=== PATIENT | male | born 1935 | race Caucasian/White ===

== ENCOUNTER 2017-12-05 09:21 | Inpatient (IN) | payer OTHER ==
[2017-12-05] VITALS (23 sets, daily range): BP systolic 113–201; BP diastolic 62–99
[~2017-12-05] VITALS: Ht 152.4 cm; Wt 80.8 kg
[2017-12-05] MEDS ORDERED: TYLENOL EXTRA500 MG PO (09:32)
[2017-12-05] MEDS ORDERED: PROSCAR 5MG TABL5 MG PO (09:33)
[2017-12-05] MEDS ORDERED: LIPITOR10 MG PO (09:33)
[2017-12-05] MEDS ORDERED: PRINIVIL20 M1 PO (09:33)
[2017-12-05] MEDS ORDERED: CLONIDINE0.1 PO (09:33)
[2017-12-05] MEDS ORDERED: MEN'S MULTI-VI1 EACH PO (09:34)
[2017-12-05] MEDS ORDERED: FLOMAX0.4 MG PO (09:34)
[2017-12-05] MEDS ORDERED: TOPROL XL25 MG PO (09:34)
[2017-12-05] MEDS ORDERED: NITROGLYCERIN0.4 MG SUBLING (09:34)
[2017-12-05 09:44] LABS: HEMATOCRIT 47.7 % (42.0-52.0); HEMOGLOBIN 16.2 gm/dL (14.0-18.0); MCH 33.2 pg (26.0-34.0); MCV 97.6 fL (80.0-100.0); MPV 7.7 fl. (7.2-11.1); RBC 4.89 mil/uL (4.50-6.00); RDW-CV 12.8 % (10.5-14.5); WBC 6.4 thou/uL (4.0-11.0)
[2017-12-05 09:47] LABS: POC CA IONIZED 4.2 mg/dL (4.5-5.3); POC CREATININE 1.2 mg/dL (0.6-1.3); POC HEMOGLOBIN 16.3 g/dL (12.0-17.0)
[2017-12-05 09:52] LABS: CALCIUM 8.7 mg/dL (8.5-10.1); CREATININE 1.3 mg/dL (0.6-1.3); POTASSIUM 3.8 mmol/L (3.5-5.1)
[2017-12-05 09:54] LABS: APTT 26.2 Seconds (25.0-31.3); PROTIME 10.1 Seconds (9.20-11.50)
[2017-12-05 09:56] LABS: TOTAL PROTEIN 7.4 g/dL (6.4-8.2)
[2017-12-05 11:36] LABS: URINE BILIRUBIN NEGATIVE (Negative); URINE BLOOD NEGATIVE (Negative); URINE CLARITY CLEAR; URINE COLOR YELLOW; URINE GLUCOSE-RANDOM NEGATIVE (Negative); URINE KETONES NEGATIVE (Negative); URINE LEUKOCYTES NEGATIVE (Negative); URINE NITRITE NEGATIVE (Negative); URINE PROTEIN NEGATIVE (Negative); URINE UROBILINOGEN 0.2 E.U./dl (0.2-1.0)
[2017-12-06] VITALS (15 sets, daily range): BP systolic 131–171; BP diastolic 62–88
[2017-12-06 08:35] LABS: CHOLESTEROL 140 mg/dL (<200); HDL CHOLESTEROL 48 mg/dL (>40); LDL CHOLESTEROL 75 mg/dL (<100); TC:HDL 2.9 Ratio (Not establshd); TRIGLYCERIDE 87 mg/dL (<150); VLDL 17 mg/dL (<40)
[2017-12-06 08:36] LABS: SERUM ASSESSMENT Clear
--- NOTE | 2017-12-06 11:40 | EKG ---
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 : 1935 Requested By: Juni Cuenca Order Number: [id number] MD: Julio Morrell Measurements Intervals [place] Rate: 64 P: -40 RI: 141 QRS: -58 QRSD: 104 T: QT: 543 QTc: 561 Interpretive Statements Sinus rhythm Low voltage, extremity and precordial leads Abnormal R-wave progression, late transition Borderline repolarization abnormality Prolonged QT interval No previous ECG available for comparison Electronically Signed On 12-06-2017 11:40:21 CHIEF STRATEGY OFFICER by Julio Morrell [email or web address] <ELECTRONICALLY SIGNED> By: Julio Morrell MD, [facility] 12/06/17 1140 [id number] [id number] Julio Morrell MD, [facility] /EPI
--- NOTE | 2017-12-06 14:08 | 2DMMODE ---
[place] [address] 2 D/M-MODE ECHOCARDIOGRAM Name: MICHAEL RAY Room: [address] IN [facility]#: [id number] Admission: 12/05/17 Attend Phys: Cat Harvey, Discharge: Date of : 39 Date of Service: 12/06/17 1407 Report #: [id number] THIS REPORT FOR: //name// APPROVED REPORT Study performed: 12/06/2017 11:14:57 EXAM: Comprehensive 2D, Doppler, and color-flow Echocardiogram Patient Location: In-Patient Room #: [facility] Status: routine BSA: 1.88 HR: 65 bpm BP: 157/77 mmHg Rhythm: NSR Other Information Study Quality: Good Indications CVA/TIA Echo Enhancing Agent Indication: Rule out Shunt Agent(s) / Amount(s) Used: Agitated Saline 10 cc 2D Dimensions LVEF(%): 64.68 (>50%) IVSd: 13.53 (7-11mm) LVOT Diam: 20.02 (18-24mm) LVDd: 49.54 mm PWd: 10.36 (7-11mm) Ascending Ao: 36.75 (22-36mm) LVDs: 31.97 (25-40mm) Aortic Root: 30.87 mm Aquino's LVEF: 64.68 % Volumes Left Atrial Volume (Systole) LA ESV Index: 21.80 mL/m2 Aortic Valve AoV Peak Renan.: 1.83 m/s AO Peak Gr.: 13.35 mmHg LVOT Max P.36 mmHg AO Mean Gr.: 7.24 mmHg LVOT Mean P.91 mmHg LVOT Max V: 1.36 m/s AO V2 VTI: 35.14 cm LVOT Mean V: 0.75 m/[place] [address] 2 D/M-MODE ECHOCARDIOGRAM Name: MICHAEL RAY Room: [address] IN .R.#: [id number] Admission: 12/05/17 Attend Phys: Cat Harvey, Discharge: Date of : 39 Date of Service: 12/06/17 1407 Report #: [id number] PILAR (VTI): 2.46 cm2 LVOT V1 VTI: 27.42 cm Mitral Valve E/A Ratio: 0.93 MV Decel. Time: 243.80 ms MV E Max Renan.: 0.82 m/s MV PHT: 70.70 ms MVA (PHT): 3.11 cm2 TDI E/Lateral E': 9.11 E/Medial E': 9.11 Medial E' Renan.: 0.09 m/s Lateral E' Renan.: 0.09 m/s Pulmonary Valve PV Peak Renan.: 0.92 m/s PV Peak Gr.: 3.41 mmHg Tricuspid Valve TR Peak Gr.: 27.88 mmHg RVSP: 32.00 mmHg Left Ventricle The left ventricle is normal size. There is normal LV segmental wall motion. Mild concentric left ventricular hypertrophy. Left ventricular systolic function is normal. The left ventricular ejection fraction is within the normal range. No left ventricle thrombus noted on this study. LVEF is 60-65%. Grade I - abnormal relaxation pattern. Right Ventricle The right ventricle is normal size. The right ventricular systolic function is normal. Atria The left atrium size is normal. Interatrial septum is intact without evidence of ASD or PFO.Negative bubble study. The right atrium size is normal. Aortic Valve The aortic valve is normal in structure. Mild aortic regurgitation. There is no aortic valvular stenosis. Mitral Valve The mitral valve is normal in structure. Trace mitral regurgitation. No evidence of mitral valve stenosis[place] [address] 2 D/M-MODE ECHOCARDIOGRAM Name: MICHAEL RAY Room: [address] IN .R.#: [id number] Admission: 12/05/17 Attend Phys: Cat Harvey, Discharge: Date of : 39 Date of Service: 12/06/17 1407 Report #: [id number] The tricuspid valve is normal in structure. Trace tricuspid regurgitation. The RVSP is 30-35 mmHg. Pulmonic Valve The pulmonary valve is normal in structure. There is no pulmonic valvular regurgitation. Great Vessels The aortic root is normal in size. IVC is normal in size and collapses with >50% inspiration Pericardium There is no pericardial effusion. <Conclusion> LVEF is 60-65%. There is normal LV segmental wall motion. The aortic valve is normal in structure. Mild aortic regurgitation. There is no aortic valvular stenosis. Interatrial septum is intact without evidence of ASD or PFO.Negative bubble study. Grade I - abnormal relaxation pattern. <ELECTRONICALLY SIGNED> By: Figueroa Lux MD, FACC 12/06/17 1407 06 140 Figueroa Lux MD, FACC /INF
[2017-12-07] VITALS (8 sets, daily range): BP systolic 141–175; BP diastolic 69–87
[2017-12-07 05:06] LABS: ALBUMIN 3.2 g/dL (3.4-5.0); CALCIUM 8.4 mg/dL (8.5-10.1); CREATININE 1.1 mg/dL (0.6-1.3); MAGNESIUM 1.8 mg/dL (1.8-2.4); PHOSPHORUS* 2.9 mg/dL (2.5-4.9); POTASSIUM 4.1 mmol/L (3.5-5.1); TOTAL BILIRUBIN 1.5 mg/dL (<0.1-1.0); TOTAL PROTEIN 5.6 g/dL (6.4-8.2)
[2017-12-07] MEDS ORDERED: ASPIRIN81 M2 PO (08:42)
[2017-12-07] MEDS ORDERED: ASA5UEC PO (09:03)
--- NOTE | 2017-12-09 10:39 | CON ---
[address] [address] CONSULTATION Name: MICHAEL RAY Room: [address] IN M.R.#: [id number] Admission: 12/05/17 Attend Phys: Cat Harvey MD Discharge: 12/07/17 Date of : 39 Report #: [id number] THIS REPORT FOR: //name// CC: Cat Bender DATE OF SERVICE: 12/05/2017 HISTORY OF PRESENT ILLNESS: This is an 82-year-old male patient who was evaluated by me for an acute onset of weakness and incoordinations on the right side. It happened at 8:00 this morning. He is very certain that he woke up without any symptoms, and it happened at 8:00 this morning. He had noted trauma associated with it. He had a stroke about 10-15 years ago. Symptoms were on the right side, but is not clear what the symptoms were. REVIEW OF SYSTEMS: Indicates that this patient apparently had a stroke in the past and that was in [place]. The records are not available. He used to be on aspirin, but he stopped taking aspirin some time ago. He does have a history of hyperlipidemia and hypertension. He takes medications for it. His 14-point review of systems was carried out, and this was his relevant 14-point review of system. PAST MEDICAL HISTORY: Positive for stroke. Further description of the stroke is not very clear. FAMILY HISTORY: Negative for early age stroke. SOCIAL HISTORY: He indicates he drinks about 1 alcoholic drink a day. The patient does not smoke. PHYSICAL EXAMINATION: Indicates he is alert, responsive. His speech is soft, but he thinks that is his baseline. His memory, fund of knowledge and concentration look intact. Cranial nerve examination 2-12 mostly looks unremarkable. I do not see any hemianopsia. He is pretty significantly weak in the right lower extremity, the strength is estimated to be about 2/5, in the upper extremity, he does better and the strength is either 3 or 4/5. He does have sensory symptoms on the right side, and he has a pretty significant impairment of the right [id number]. His position sense is intact on both sides. Reflexes are symmetrical. There is no carotid bruit in this patient. There is no atrial fibrillation, no respiratory difficulty, no edema, cyanosis or jaundice. Last blood pressure is 159/81, respirations 15, pulse is 74 and temperature is 97.9. LABORATORY DATA: His white count is normal. His PT, PTT were normal. [place] [address] CONSULTATION Name: FLORMICHAEL Reji Room: [address] IN [facility]#: [id number] Admission: 12/05/17 Attend Phys: Cat Harvey MD Discharge: 12/07/17 Date of : 39 Report #: [id number] Cuenca from Emergency Room has gone with him for exclusion criteria. He did not find any exclusion criteria, and the patient was started on TPA. I came back to Emergency Room and discussed with him the situation. I discussed with him that at this time, the diagnosis is presumptive. If we try to confirm the diagnosis, then the time to give TPA passes, and even if it does not pass, it is a time sensitive diagnosis where prognosis is worst if we delay the TPA administration. He understood all those. He wanted to proceed with TPA. I also discussed with him that in a patient with NIH low scale, it is up to the patient if he wants TPA or not, but unfortunately if he becomes worse, then the time to give TPA passes off. He understood that also. He wanted to proceed with TPA. He understands the risk associated with the TPA. TPA was already started and it was continued. Subsequent to that, I got the CT angiogram done, and I reviewed those films with the radiologist. 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 I recommended that the patient be transferred to [facility] for consideration for intervention. As I understand from the records now that people did not think any intervention is indicated and the patient was kept here. Since he does have a stenosis, I would like to keep his blood pressure somewhat high. Because of TPA, we need to keep it lower than 180 systolic, so I will suggest keeping somewhere between 150 and 180 systolic. I agree with some fluid in this patient. He can be restarted on antihypertensive he was on, but he should be closely monitored to make sure the blood pressure does not drop. I will get a stat MRI in this patient. That should look for any brainstem CVA or any cerebellar CVA because of so much ataxia. If he has a cerebellar CVA, he needs to be monitored very closely because surgical intervention will be indicated in case he has a cerebellar stroke and tries to herniate. All of it was discussed with the patient in great detail. More than 50 minutes of time was spent taking care of this patient today and majority of that time was spent counseling the patient on multiple matters as well as coordinating his care. Thank you very much for this referral, and if you have any question, please feel free to contact me. We will follow this patient with you in the hospital. <ELECTRONICALLY SIGNED> By: Jorden Singer MD 12/09/17 1039 1311 [id number] leonela Walls
== END 2017-12-07 11:47 | disposition home or self-care (01) | DRG 62 ==
LOC: M.ERS 09:21 → M.ICU 10:28 → M.TBA-ER 10:28 → M.ICU 11:24
PROVIDERS: Emergency Medicine; ADMIT Internal Medicine
DX: I63.9 Cerebral infarction, unspecified (principal); G81.93 Hemiplegia, unspecified affecting right nondominant side; I10 Essential (primary) hypertension; N40.0 Benign prostatic hyperplasia without lower urinary tract symptoms; E78.5 Hyperlipidemia, unspecified; Z88.2 Allergy status to sulfonamides; Z86.73 Personal history of transient ischemic attack (TIA), and cerebral infarction without residual deficits

== ENCOUNTER 2018-07-28 11:34 | Inpatient (IN) | payer OTHER ==
[~2018-07-28] VITALS: Ht 165.1 cm; Wt 75.6 kg
[~2018-07-28 11:34] MED LIST: ASA5UEC PO; ASPIRIN81 M2 PO; CLONIDINE0.1 PO; FLOMAX0.4 MG PO; LIPITOR10 MG PO; MEN'S MULTI-VI1 EACH PO; NITROGLYCERIN0.4 MG SUBLING; PRINIVIL20 M1 PO; PROSCAR 5MG TABL5 MG PO; TOPROL XL25 MG PO; TYLENOL EXTRA500 MG PO
[2018-07-28 11:41] VITALS: BP 163/99
[2018-07-28] MEDS ORDERED: PRINIVIL20 MG PO (11:47)
[2018-07-28] MEDS ORDERED: XARELTO20 MG PO (11:47)
[2018-07-28] MEDS ORDERED: MULTI VITAMIN1 EACH PO (11:48)
[2018-07-28 12:25] LABS: ABSOLUTE MONOCYTES 0.5 thou/uL (0.0-1.2); ABSOLUTE NEUTROPHILS 4.5 thou/uL (1.6-8.1); BASOPHILS 0.5 %; EOSINOPHILS 0.4 %; HEMATOCRIT 48.2 % (42.0-52.0); HEMOGLOBIN 16.2 gm/dL (14.0-18.0); LYMPHOCYTES 28.6 %; MCH 33.2 pg (26.0-34.0); MCHC 33.5 g/dL (28.0-37.0); MCV 99.1 fL (80.0-100.0); MPV 7.9 fl. (7.2-11.1); NUCLEATED RBCS 0 /100WBC; PLATELET COUNT* 208 thou/uL (150-400); POLYS 63.5 %; RBC 4.87 mil/uL (4.50-6.00); RDW-CV 13.4 % (10.5-14.5); WBC 7.1 thou/uL (4.0-11.0)
[2018-07-28 12:32] LABS: ANION GAP 6 mmol/L (7-16); BUN 18 mg/dL (7-18); CALCIUM 8.6 mg/dL (8.5-10.1); CHLORIDE 105 mmol/L (98-107); CO2 30 mmol/L (21-32); CREATININE 1.4 mg/dL (0.6-1.3); GLUCOSE 114 mg/dL (70-99); POTASSIUM 4.3 mmol/L (3.5-5.1); SODIUM 141 mmol/L (136-145)
[2018-07-28 12:33] LABS: APTT 35.3 Seconds (25.0-31.3); INR 1.2
--- NOTE | 2018-07-28 12:33 | NUR ---
PATIENT CLEARED THROAT, DOUBLE SWALLOWED AND COUGHED AFTER TAKING MOUTH FULL OF WATER AND DRINKING NORMAL. ADVISED DR DUENAS AND MADE NPO AT THIS TIME
[2018-07-28 12:39] LABS: ALKALINE PHOSPHATASE 56 U/L (46-116); SGOT 25 U/L (15-37); SGPT 45 U/L (30-65); TOTAL PROTEIN 7.2 g/dL (6.4-8.2); TROPONIN-I LEVEL <0.06 ng/mL (<0.06)
--- NOTE | 2018-07-28 14:38 | EKG ---
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 : 1935 Requested By: Jim Talbot Order Number: [id number] MD: Antonio Sumner Measurements Intervals [place] Rate: 87 P: SD: QRS: -56 QRSD: 79 T: QT: 495 QTc: 596 Interpretive Statements Atrial fibrillation Inferior infarct, old Consider anterior infarct Prolonged QT interval Compared to ECG 12/05/2017 09:54:59 Myocardial infarct finding now present Sinus rhythm no longer present Electronically Signed On 07-28-2018 14:38:09 CDT by Antonio Sumner [email or web address] <ELECTRONICALLY SIGNED> By: Antonio Sumner MD, [facility] 07/28/18 1438 1144 1144 Antonio Sumner MD, [facility] /EPI
[2018-07-28 14:44] VITALS: BP 155/98
--- NOTE | 2018-07-28 15:18 | NUR ---
PT OIENTED TO ROOM AND UNIT. PT DENIES COA OR PAIN AT THIS TIME. TELE EVEALS CONTROLLED AFIB. NIH COMPLETED AND PT WILL GO FOR MRI OF HEAD. WILL CONTINUE TO ASSESS.
[2018-07-28 16:13] VITALS: BP 148/104
--- NOTE | 2018-07-28 16:52 | NUR ---
DR SOLITARIO PERFORM BEDSIDE SWALLOW EVALUATION AND PATIENT PASSES. HEART HEALTHY DIET ORDERED.
[2018-07-28 20:30] VITALS: BP 118/75
[2018-07-29] VITALS: BP 93/55
[2018-07-29 04:00] VITALS: BP 129/88
--- NOTE | 2018-07-29 05:45 | NUR ---
PATIENT ALERT AND ORIENTED X 4. VITALS STABLE. RA. TRACING AFIB ON SEEING EYE DOG TEACHER. TYLENOL GIVEN FOR A HEADACHE, EFFECTIVE. DENIES ANYOTHER DISCOMFORT. UP WITH SBA. HOURLY ROUNDS. NURSING WILL CONTINUE TO MONITOR.
--- NOTE | 2018-07-29 09:00 | NUR ---
ASSUMED CARE OF PATIENT AFTER REC'G REPORT FROM DARREN RN. PT IS A & O X4, ABLE TO COMMUNICATE NEEDS TO STAFF. 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 O2 ATS: 95% RA. HOURLY ROUNDING. CALL LIGHT WITHIN REACH. PT UP AD NILAM IN ROOM WITH STEADY GAIT AND NONSLIP SOCKS.
[2018-07-29 10:00] VITALS: BP 142/72
[2018-07-29 12:49] LABS: CALCIUM 8.4 mg/dL (8.5-10.1); CREATININE 1.2 mg/dL (0.6-1.3); DIRECT BILIRUBIN 0.4 mg/dL (<0.1-0.3); POTASSIUM 4.3 mmol/L (3.5-5.1)
[2018-07-29 12:53] VITALS: BP 139/99
--- NOTE | 2018-07-29 13:30 | NUR ---
MET WITH PT TO DISCUSS HOME SITUATION/DC PLANNING. PT LIVES WITH , IS INDEPENDENT AND ACTIVE. USES NO EQUIPMENT AND HASN'T HAD HH. HE DENIES ANY DC NEEDS AND VOICED FRUSTRATION THAT HE THOUGHT HE WAS GOING HOME BUT WAITING ON A TEST. MARIA L FOWLER AWARE AND MAKING CALLS. PT REASSURED. CM TO FOLLOW
[2018-07-29 16:00] VITALS: BP 125/81
--- NOTE | 2018-07-29 16:30 | NUR ---
PT WITH COMPLETE DC ORDER IN CHART. DC INSTRUCTIONS AND MED LIST REVIEWED WITH PT AND FAMILY. ANSWERED QUESTIONS TO SATISFACTION OF PATIENT AND FAMILY. DOORS PREFITTER AND IV DC'D. PT IN POSSESSION OF ALL BELONGINGS. PT ASSISTED FROM UNIT BY AMBULATING WITH FAMILY AND UNIT STAFF MEMBER. PT FAMILY MEMBER WILL TRANSPORT PATIENT TO HOME VIA PERSONAL CAR.
[2018-07-29 16:39] VITALS: BP 125/81
--- NOTE | 2018-08-07 09:50 | CON ---
[address] [address] CONSULTATION Name: MICHAEL RAY Room: [address] IN M.R.#: [id number] Admission: 07/28/18 Attend Phys: Faby Mendoza Discharge: 07/29/18 Date of : 39 Report #: [id number] THIS REPORT FOR: //name// CC: Martha Napoleon Haddad DATE OF SERVICE: 07/28/2018 HISTORY OF PRESENT ILLNESS: This is an 83-year-old male patient who was evaluated by me for TIA-like symptoms. He had right-sided numbness and weakness. It has happened to him in the past. He was here in December. He was given TPA at that time. He had similar symptoms at that time. He was not found to be intervention candidate the last time. His blood pressure has been fluctuating and it was high when he came in. REVIEW OF SYSTEMS: Positive for stroke-like symptoms in December of this year. He had small and ischemic infarction at that time. I carried out the 14-point review of systems. He does have a history of hypertension and CVA. One of the records indicates atrial fibrillation, but I need to confirm that record. The patient does have a history of BPH. In fact, I looked at his records and it does look like he has atrial fibrillation on his EKG. Otherwise, he is not complaining of any new eye, ENT, cardiorespiratory, GI, , musculoskeletal, constitutional, dermatological, hematological, psychiatric, throat or allergic symptom associated with present symptomatology. PAST MEDICAL HISTORY: Positive for stroke. FAMILY HISTORY: Negative for early age stroke. SOCIAL HISTORY: The patient is and in fact his was my patient too. He does drink alcohol in moderation. He does not smoke. PHYSICAL EXAMINATION: NEUROLOGY: Indicate that this patient is alert, responsive, and able to follow simple and complex command. His speech, concentration, fund of knowledge, and memory is at his baseline. Cranial nerve examination 2-12 is unremarkable. His strength, sensation, reflexes, and tone look symmetrical. EXTREMITIES: Pulses are palpable. He has no edema, cyanosis or jaundice. There is no edema. NECK: There is no thyroid mass. HEENT: His hearing and vision is adequate. He has no dysmorphic features of eyes, ears and face. RESPIRATORY: Unremarkable. CARDIAC: He has what looks like atrial fibrillations on his EKG. IMPRESSION: This is a complicated case, for which [place] [address] CONSULTATION Name: RAYMICHAEL Reji Room: [address]#: [id number] Admission: 07/28/18 Attend Phys: Faby Mendoza Discharge: 07/29/18 Date of : 39 Report #: [id number] be addressed in this patient. If he has atrial fibrillations, which it looks like from the EKG report, then he needs a cardiology consult and anticoagulation. He has a prior documented CVA on a prior MRI and he has what looks like transient ischemic attack during the present presentation. He had some carotid stenosis or irregularity, which has disappeared indicating the last episode may have been secondary to embolization. Therefore, I believe we need a cardiology consult and consideration for anticoagulation. One of the record indicate that he may have been on anticoagulation and I need to discuss that with you. RECOMMENDATIONS: 1. Control of the blood pressure. 2. Clarify the situation with the radiologist and cutting torch operator tomorrow to address the question of anticoagulation in this patient. I have discussed all of it with this patient. A lot of that I got after I reviewed his old records and I will discuss that data with the patient tomorrow. More than 50 minutes of time was spent taking care of this patient today and majority of the time was spent counseling the patient and coordinating his care by reviewing all the above described. <ELECTRONICALLY SIGNED> By: Jorden Singer MD 08/07/18 0950 1857 [id number] Singer MD /nt
--- NOTE | 2018-08-28 09:08 | CON ---
[address] [address] CONSULTATION Name: MICHAEL RAY Room: [address] IN M.R.#: [id number] Admission: 07/28/18 Attend Phys: Faby Mendoza Discharge: 07/29/18 Date of : 39 Report #: [id number] THIS REPORT FOR: //name// CC: Martha Haddad DATE OF SERVICE: 07/29/2018 CARDIOLOGY CONSULTATION HISTORY OF PRESENT ILLNESS: I was asked by Dr. Haddad and Dr. Harvey to see this 83-year-old white male in cardiology consultation for evaluation and treatment of a TIA in the context of permanent AFib. This gentleman also has a history of a previous CVA. He has had his blood pressure go up recently and he tried to get a new script filled from Dr. Bender for hydrochlorothiazide 12.5 mg daily to be taken in addition to his metoprolol, clonidine, and lisinopril and for some reason, there was some difficulty filling it with the pharmacy. His blood pressure was fairly high for him, I believe in the 160 range and he developed right-sided weakness and heaviness in both the arm and the leg. He said it was fairly mild. His doctor, Dr. Bender, sent him to the Emergency Room. Diagnosis there of a TIA was made and he received some medication IV. He is not sure what it was, although he says he thought it was a beta antoine and it brought his blood pressure right down and his symptoms began to resolve at that time. He has been seen by Neurology that is Dr. Singer, who does also think he has had a TIA. Various ultrasounds, CTs and MRIs have been done, which did not show any evidence of a abbi infarct. He has not had any further symptoms. It is felt this was possibly an embolic event. I wonder if his hypertension may have played a role as well. Additionally, he does have hypercholesterolemia, benign prostatic hypertrophy, and coronary artery disease. He has not had any chest pain. He has not had dyspnea on exertion, shortness of breath at rest, orthopnea or PND. He has not had any recent syncope. Coronary risk factors include the hypercholesterolemia and high blood pressure. He does not have diabetes. He does not smoke. There is a family history of heart disease. He has not had renal disease or peripheral vascular disease. He apparently has a history of some carotid disease in the past, although the most recent carotid study which is less than a year ago that is an ultrasound did not show significant disease. He does have pain in his legs when he walks, is not clearly claudication. He thinks it may be arthritis. He has not had any open or nonhealing wounds. PAST MEDICAL HISTORY: Also includes an appendectomy, tonsillectomy, mastoidectomy, some sort of heat related syndrome as well as the TIA and CVA. ALLERGIES: HE IS ALLERGIC TO SULFA. HOME MEDICATIONS: Include p.r.n. Tylenol, atorvastatin 10 mg daily, [place] [address] CONSULTATION Name: MICHAEL RAY Room: [address] DIS IN M.R.#: [id number] Admission: 07/28/18 Attend Phys: Faby Mendoza Discharge: 07/29/18 Date of : 39 Report #: [id number] 0.1 mg b.i.d., finasteride 5 mg daily, lisinopril 20 mg b.i.d., metoprolol 25 mg daily. He is now on hydrochlorothiazide 12.5 mg daily, multivitamin daily, p.r.n. nitroglycerin, Xarelto 20 mg daily and tamsulosin 0.4 mg daily. Today, I added aspirin 81 mg daily to his regimen. REVIEW OF SYSTEMS: Positive for erectile dysfunction, cough, chest discomfort, shortness of breath with exercise, nearly passing out or passing out in the distant past, vomiting in the past, blood in the urine, seasonal allergies, medical allergies, sulfa allergy, wears glasses. He has some decreased hearing, bleeding from the nose in the past and wears dentures. Otherwise, his review of systems is negative for some 30 different complaints in 14 different system categories including central nervous system, general, respiratory, cardiovascular, endocrine, gastrointestinal, genitourinary, hematologic, lymphatic, allergic, immunologic, psychiatric, musculoskeletal, skin, eyes, ears, nose, mouth, and throat. Please see review of system form for details and negatives in review of systems. SOCIAL HISTORY: He is . 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 He has one alcoholic beverage per day and does not smoke. PHYSICAL EXAMINATION: GENERAL: He presents as a well-developed, well-nourished white male, in no acute distress. VITAL SIGNS: Pulse was 77 and slightly irregular, blood pressure is 142/92, temperature was 98.5 and respirations were 16 and regular. He is clinically afebrile. HEENT: His head was atraumatic. Eyes clear. NECK: Supple. There is no jugular venous distention or hepatojugular reflux. Thyroid is not enlarged. There is no adenopathy. SKIN: Warm and dry. Mucous membranes are moist. LUNGS: Clear to auscultation and percussion. HEART: Revealed normal first and second heart sound. There is no S4. There is no S3. There are no murmurs, rubs, thrills or heaves. Rhythm was irregularly irregular, rate was approximately 80. PMI is nondisplaced. ABDOMEN: Soft, flat, nontender. No palpable masses, no organomegaly. EXTREMITIES: Reveal no cyanosis, clubbing or edema. NEUROLOGIC: The patient mentated normally, talked normally, moved all extremities normally. IMPRESSION: 1. Transient ischemic attack. 2. Status post cerebrovascular accident. 3. Permanent atrial fibrillation. 4. Essential hypertension. 5. Hypercholesterolemia. 6. [place]ign [place] [address] CONSULTATION Name: MICHAEL RAY Room: [address] IN ..#: [id number] Admission: 07/28/18 Attend Phys: Faby Mendoza Discharge: 07/29/18 Date of : 39 Report #: [id number] 7. Coronary artery disease. RECOMMENDATION: He should continue full dose Xarelto or rivaroxaban and he should add aspirin 81 mg plain to his regimen daily. He is to continue his current antihypertensive regimen, which will include 12.5 mg of hydrochlorothiazide daily. He is to use p.r.n. clonidine 0.1 mg if his blood pressure gets above 150. Thank you very much for asking me to see the patient. If there are any questions, please feel free to contact me. He will follow up with Dr. Wills in our office. <ELECTRONICALLY SIGNED> By: Henrry Coffey MD, FACC 08/28/18 0908 1453 [id number]. Javan Blanchard MD, FACC /nt
== END 2018-07-29 17:37 | disposition still patient (30) | DRG 683 ==
LOC: M.ERS 11:34 → M.TBA-ER 12:49 → M.2W 13:41
PROVIDERS: Emergency Medicine Emergency Medical Services; ADMIT Internal Medicine
DX: N17.9 Acute kidney failure, unspecified (principal); G45.9 Transient cerebral ischemic attack, unspecified; Z79.01 Long term (current) use of anticoagulants; I16.0 Hypertensive urgency; E78.5 Hyperlipidemia, unspecified; I10 Essential (primary) hypertension; I48.2 Chronic atrial fibrillation; E78.00 Pure hypercholesterolemia, unspecified; N40.0 Benign prostatic hyperplasia without lower urinary tract symptoms; I25.10 Atherosclerotic heart disease of native coronary artery without angina pectoris; Z79.82 Long term (current) use of aspirin; Z79.899 Other long term (current) drug therapy; Z88.2 Allergy status to sulfonamides; Z90.49 Acquired absence of other specified parts of digestive tract

== ENCOUNTER 2018-08-21 04:54 | Emergency (ER) | payer OTHER ==
[~2018-08-21] VITALS: Ht 167.6 cm; Wt 74.4 kg
[~2018-08-21 04:54] MED LIST changes: +MULTI VITAMIN1 EACH PO; +PRINIVIL20 MG PO; +XARELTO20 MG PO
[2018-08-21] MEDS ORDERED: LOPRESSOR25 (05:01)
[2018-08-21] MEDS ORDERED: ASPIR 8181 MG (05:02)
[2018-08-21] MEDS ORDERED: HYDROCHLOROTH12.5 M1 (05:02)
[2018-08-21 05:55] LABS: ABSOLUTE EOSINOPHILS 0.1 thou/uL (0.0-0.7); ABSOLUTE LYMPHOCYTES 2.3 thou/uL (0.8-5.3); ABSOLUTE MONOCYTES 0.6 thou/uL (0.0-1.2); ABSOLUTE NEUTROPHILS 3.2 thou/uL (1.6-8.1); BASOPHILS 0.6 %; HEMATOCRIT 42.3 % (42.0-52.0); LYMPHOCYTES 37.6 %; MCH 32.5 pg (26.0-34.0); MCHC 33.2 g/dL (28.0-37.0); MCV 97.9 fL (80.0-100.0); MONOCYTES 9.2 %; MPV 7.4 fl. (7.2-11.1); NUCLEATED RBCS 0 /100WBC; PLATELET COUNT* 215 thou/uL (150-400); POLYS 51.6 %; RBC 4.32 mil/uL (4.50-6.00); RDW-CV 12.7 % (10.5-14.5); WBC 6.2 thou/uL (4.0-11.0)
[2018-08-21 09:15] VITALS: BP 126/90
== END 2018-08-21 09:18 | disposition home or self-care (01) ==
LOC: M.ERS 04:54
PROVIDERS: Emergency Medicine Emergency Medical Services
DX: K91.840 Postprocedural hemorrhage of a digestive system organ or structure following a digestive system procedure (principal); I10 Essential (primary) hypertension; E78.5 Hyperlipidemia, unspecified; I48.91 Unspecified atrial fibrillation; Z88.2 Allergy status to sulfonamides

== ENCOUNTER 2018-09-29 11:21 | Inpatient (IN) | payer OTHER ==
[~2018-09-29] VITALS: Ht 162.6 cm; Wt 79.4 kg
[~2018-09-29 11:21] MED LIST changes: +ASPIR 8181 MG; +HYDROCHLOROTH12.5 M1; +LOPRESSOR25
[2018-09-29 11:29] VITALS: BP 170/114
[2018-09-29 11:51] LABS: ABSOLUTE MONOCYTES 0.7 thou/uL (0.0-1.2); ABSOLUTE NEUTROPHILS 4.7 thou/uL (1.6-8.1); BASOPHILS 0.5 %; EOSINOPHILS 0.6 %; HEMATOCRIT 43.7 % (42.0-52.0); HEMOGLOBIN 14.3 gm/dL (14.0-18.0); LYMPHOCYTES 26.9 %; MCH 32.3 pg (26.0-34.0); MCHC 32.6 g/dL (28.0-37.0); MCV 99.1 fL (80.0-100.0); MONOCYTES 9.6 %; MPV 7.4 fl. (7.2-11.1); NUCLEATED RBCS 0 /100WBC; PLATELET COUNT* 260 thou/uL (150-400); POLYS 62.4 %; RBC 4.41 mil/uL (4.50-6.00); RDW-CV 13.7 % (10.5-14.5); WBC 7.6 thou/uL (4.0-11.0)
[2018-09-29 11:57] LABS: ANION GAP 7 mmol/L (7-16); BUN 20 mg/dL (7-18); CALCIUM 8.6 mg/dL (8.5-10.1); CHLORIDE 105 mmol/L (98-107); CO2 30 mmol/L (21-32); CREATININE 1.2 mg/dL (0.6-1.3); GLUCOSE 100 mg/dL (70-99); POTASSIUM 3.5 mmol/L (3.5-5.1); SODIUM 142 mmol/L (136-145)
[2018-09-29 11:59] LABS: APTT 32.7 Seconds (25.0-31.3); INR 1.2; PROTIME 12.1 Seconds (9.20-11.50)
[2018-09-29 12:09] LABS: ALBUMIN 3.7 g/dL (3.4-5.0); ALKALINE PHOSPHATASE 82 U/L (46-116); NT-PRO BRAIN NAT PEPTIDE 3543 pg/mL (<300); SGOT 39 U/L (15-37); SGPT 72 U/L (30-65); TOTAL BILIRUBIN 1.4 mg/dL (<0.1-1.0); TOTAL PROTEIN 7.1 g/dL (6.4-8.2); TROPONIN-I LEVEL <0.06 ng/mL (<0.06)
[2018-09-29 15:25] VITALS: BP 170/116
[2018-09-29 15:26] VITALS: BP 170/116
[2018-09-29 17:43] LABS: CALCIUM 8.6 mg/dL (8.5-10.1); CREATININE 1.2 mg/dL (0.6-1.3); MAGNESIUM 1.9 mg/dL (1.8-2.4); POTASSIUM 3.6 mmol/L (3.5-5.1)
[2018-09-29 20:00] VITALS: BP 158/95
[2018-09-30] VITALS (7 sets, daily range): BP systolic 109–156; BP diastolic 75–113
[2018-09-30 04:21] LABS: ABSOLUTE EOSINOPHILS 0.1 thou/uL (0.0-0.7); ABSOLUTE LYMPHOCYTES 2.3 thou/uL (0.8-5.3); ABSOLUTE MONOCYTES 0.8 thou/uL (0.0-1.2); ABSOLUTE NEUTROPHILS 4.8 thou/uL (1.6-8.1); BASOPHILS 0.3 %; EOSINOPHILS 0.7 %; HEMATOCRIT 39.5 % (42.0-52.0); HEMOGLOBIN 13.4 gm/dL (14.0-18.0); LYMPHOCYTES 29.1 %; MCH 32.9 pg (26.0-34.0); MCHC 33.9 g/dL (28.0-37.0); MONOCYTES 9.9 %; MPV 7.8 fl. (7.2-11.1); NUCLEATED RBCS 0 /100WBC; PLATELET COUNT* 232 thou/uL (150-400); RBC 4.07 mil/uL (4.50-6.00); RDW-CV 13.5 % (10.5-14.5); WBC 8.1 thou/uL (4.0-11.0)
[2018-09-30 04:23] LABS: CALCIUM 8.9 mg/dL (8.5-10.1); CREATININE 1.3 mg/dL (0.6-1.3); POTASSIUM 3.3 mmol/L (3.5-5.1)
--- NOTE | 2018-09-30 09:44 | CON ---
[address] [address] CONSULTATION Name: MICHAEL RAY Room: [address] IN M.R.#: [id number] Admission: 09/29/18 Attend Phys: Carlos So MD Discharge: Date of : 39 Report #: [id number] THIS REPORT FOR: //name// CC: Carlos Bender MD DATE OF SERVICE: 09/29/2018 INDICATION: Atrial fibrillation with rapid ventricular response rate, dyspnea and lower extremity swelling. 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 He was seen by his primary physician's office and noted to have hypertension, rapid ventricular response rate with atrial fibrillation and lower extremity swelling with complaints of progressive dyspnea. He was referred to the Emergency Room for further evaluation. CTA showed a possible nonocclusive pulmonary embolus in a sub-branch of the right pulmonary artery. No other emboli were appreciated. Chest x-ray was clear. NT-proBNP is elevated. Cardiac enzymes were unremarkable. EKG shows atrial fibrillation with a slightly rapid ventricular response rate without significant ST or T-wave abnormalities. The patient denies any chest pain. He has had progressive dyspnea on exertion over the last week or two. He is not having significant orthopnea. He is without other cardiac complaint. Venous Doppler study of lower extremity showed no evidence of DVT. The patient has been on Xarelto chronically for his atrial fibrillation. There is a history of coronary artery disease remotely. He is not having any symptoms to suggest angina. He has a history of CVA, remotely and TIA more recently. He has been recommended to be on a daily aspirin. CARDIAC RISK FACTORS: Include dyslipidemia and hypertension. PAST MEDICAL HISTORY: 1. Coronary artery disease. 2. Chronic atrial fibrillation. 3. Chronic diastolic heart failure. 4. Hypertension. 5. Dyslipidemia. 6. Previous CVA/TIA. PAST SURGICAL HISTORY: [place] [address] CONSULTATION Name: MICHAEL RAY Room: [address] IN [facility].#: [id number] Admission: 09/29/18 Attend Phys: Carlos So MD Discharge: Date of : 37 Report #: [id number] 1. Appendectomy. 2. Tonsillectomy. 3. Mastoidectomy. ALLERGIES: SULFA. HOME MEDICATIONS: Acetaminophen 500 mg q. 4 hours p.r.n., atorvastatin 10 mg at bedtime, clonidine 0.1 mg p.o. b.i.d., finasteride 5 mg daily, lisinopril 20 mg b.i.d., metoprolol tartrate 25 mg b.i.d., multivitamin 1 tablet daily, Xarelto 20 mg daily. SOCIAL HISTORY: The patient does not smoke. He has one alcoholic drink daily. He is . His is with him. 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 FAMILY HISTORY: Noncontributory. REVIEW OF SYSTEMS: As per HPI. PHYSICAL EXAMINATION: VITAL SIGNS: Stable. Blood pressure 170/116, pulse is in the 90s and irregular. GENERAL: This is a very pleasant elderly gentleman who is in no distress. Mood and affect appropriate. HEENT: The patient is normocephalic, atraumatic. Extraocular muscles intact. Mucous membranes are moist. NECK: Shows no jugular venous distention. There are no carotid bruits. CHEST: Reveals diminished breath sounds without wheezes or rales. CARDIOVASCULAR: Reveals an irregularly irregular rhythm without gallop or murmur. ABDOMEN: Reveals normal bowel sounds. The abdomen is soft, nontender. EXTREMITIES: Shows 1-2+ pitting edema to the knees bilaterally. SKIN: Warm and dry. LABORATORY DATA: A 12-lead EKG shows atrial fibrillation with no significant ST or T-wave abnormalities. Labs are reviewed. Sodium 142, potassium 3.5, chloride 105, bicarbonate 30, BUN 20, creatinine 1.2, serum glucose 100. Troponin less than 0.06. NT-proBNP 3543. White blood cell count 7.6, hemoglobin 14.3, platelet count 260,000. Chest x-ray without acute pulmonary abnormality. IMPRESSION AND RECOMMENDATIONS: 1. Acute on chronic diastolic heart failure exacerbated by rapid rate ventricular response and hypertension. We will diurese with diuretics and [place] [address] CONSULTATION Name: MICHAEL RAY Room: [address] IN .R.#: [id number] Admission: 09/29/18 Attend Phys: Carlos So MD Discharge: Date of : 37 Report #: [id number] 2. Hypertension. Adjust antihypertensive regimen in an effort to improve blood pressure control. 3. Atrial fibrillation, rate rapid at present time. We will adjust medications to improve rate control. 4. Dyslipidemia. Continue atorvastatin at current dose. 5. Coronary artery disease, presently stable. He is having no symptoms to suggest angina or acute coronary syndrome. 6. Pulmonary embolus, possibly noted by CTA. I doubt this is clinically relevant. Would continue Xarelto indefinitely. <ELECTRONICALLY SIGNED> By: Henrry Coffey MD, FACC 09/30/18 0944 1727 [id number] Coffey MD, FACC /nt
[2018-10-01 00:02] VITALS: BP 116/70
[2018-10-01 03:39] VITALS: BP 133/92
[2018-10-01 04:21] LABS: ABSOLUTE EOSINOPHILS 0.1 thou/uL (0.0-0.7); ABSOLUTE LYMPHOCYTES 2.5 thou/uL (0.8-5.3); ABSOLUTE MONOCYTES 0.8 thou/uL (0.0-1.2); ABSOLUTE NEUTROPHILS 4.3 thou/uL (1.6-8.1); BASOPHILS 0.3 %; EOSINOPHILS 0.8 %; HEMATOCRIT 43.3 % (42.0-52.0); HEMOGLOBIN 14.2 gm/dL (14.0-18.0); LYMPHOCYTES 32.7 %; MCH 32.3 pg (26.0-34.0); MCHC 32.9 g/dL (28.0-37.0); MCV 98.3 fL (80.0-100.0); MONOCYTES 10.1 %; MPV 7.7 fl. (7.2-11.1); NUCLEATED RBCS 0 /100WBC; PLATELET COUNT* 253 thou/uL (150-400); POLYS 56.1 %; RBC 4.41 mil/uL (4.50-6.00); RDW-CV 13.7 % (10.5-14.5); WBC 7.7 thou/uL (4.0-11.0)
[2018-10-01 04:41] LABS: CALCIUM 9.1 mg/dL (8.5-10.1); CREATININE 1.6 mg/dL (0.6-1.3); POTASSIUM 4.1 mmol/L (3.5-5.1)
[2018-10-01 08:00] VITALS: BP 119/83; BP 131/92
[2018-10-01] MEDS ORDERED: LASIX 40 MG TAB40 M2 PO (13:24)
[2018-10-01 13:32] VITALS: BP 119/83
[2018-10-01] MEDS ORDERED: XARELTO15 MG PO (14:17)
--- NOTE | 2018-10-01 15:32 | EKG ---
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 CORNELIUS : 1935 Requested By: Samantha Patel Order Number: [id number] MD: Henrry Coffey Measurements Intervals [place] Rate: 98 P: [place]: QRS: -41 QRSD: 81 T: 32 QT: 395 QTc: 505 Interpretive Statements Atrial fibrillation Abnormal R-wave progression, late transition Inferior infarct, old Prolonged QT interval Baseline wander in lead(s) V6 Compared to ECG 07/28/2018 11:44:39 No significant changes Electronically Signed On 10-01-2018 15:32:11 FEEDER CATCHER by Henrry Coffey [email or web address] <ELECTRONICALLY SIGNED> By: Henrry Coffey MD, FACC 10/01/18 1532 1150 1150 Henrry Coffey MD, FACC /EPI
--- NOTE | 2018-10-01 15:34 | EKG ---
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 : 1935 Requested By: Carlos So Order Number: [id number] Natasha MD: Henrry Coffey Measurements Intervals [place] Rate: 123 P: [place]: QRS: -60 QRSD: 82 T: QT: 371 QTc: 531 Interpretive Statements Atrial fibrillation Inferior infarct, old Possible anterior infarct, age indeterminate Prolonged QT interval Compared to ECG 07/28/2018 11:44:39 Myocardial infarct finding still present Electronically Signed On 10-01-2018 15:34:10 SECOND CUTTER by Henrry Coffey [email or web address] <ELECTRONICALLY SIGNED> By: Henrry Coffey MD, FACC 10/01/18 1534 0448 0448 Henrry Coffey MD, FACC /EPI
--- NOTE | 2018-10-06 07:08 | CON ---
[address] [address] CONSULTATION Name: RAYMICHAEL Reji Room: [address] IN M.R.#: [id number] Admission: 09/29/18 Attend Phys: Carlos So MD Discharge: 10/01/18 Date of : 37 Report #: [id number] THIS REPORT FOR: //name// CC: Carlos Cohen MD REQUESTING PHYSICIAN: Carlos So MD REASON FOR CONSULTATION: Finding of a pulmonary embolus on CAT scan. HISTORY OF PRESENT ILLNESS: The patient is a very pleasant 83-year-old gentleman who is from the [place] region who had been having about 2-4 days of progressive leg swelling and dyspnea on exertion, came in for evaluation and was found to have atrial fibrillation with rapid ventricular response and also bilateral lower extremity swelling. They did a CTA, which showed a possible small clot in a sub-branch of the right pulmonary artery. His breathing is now much improved after rate control and some diuresis. The patient has been compliant with his Xarelto 20 mg daily. He denied any recent headache, fevers, chills, nausea, vomiting. He had been eating a little bit more salt than usual lately. He denied any blood in his urine or stool. He thinks he is compliant with his medication. He has not had any bleeding difficulties. PAST MEDICAL HISTORY: Notable for the atrial fibrillation, also coronary artery disease, chronic diastolic heart failure, hypertension, lipid abnormalities, prior strokes about 10 years ago and also about in , also teeth extraction, hernia repair. FAMILY HISTORY: Mother and father had heart troubles. Brother from complications of prostate cancer. I think he has two children, one of them or maybe both have hypertension. MEDICATIONS: Metoprolol 100 b.i.d., Xarelto 15 b.i.d., multivitamins daily, finasteride 5 mg daily, potassium chloride 200 mL daily IV push, furosemide 40 b.i.d. IV push, pantoprazole 40 daily, lisinopril 20 b.i.d., clonidine 0.1 b.i.d., atorvastatin 10 at bedtime, various IV fluids, also received Zithromax. PHYSICAL EXAMINATION: GENERAL: The patient appears his stated age. He is very pleasant. He appears to be very talkative and appears to be a reliable historian. It appears the and several family members are present. VITAL SIGNS: Height is 5 feet 4 inches, 162 cm, weight 175 pounds. Blood pressure is 109/77, respirations 18, pulse 88, temperature 97.7. HEENT: Oropharynx clear. LUNGS: Appear to be mostly clear. Bases have some crackles, [place] [address] CONSULTATION Name: MICHAEL RAY Room: [address]#: [id number] Admission: 09/29/18 Attend Phys: Carlos So MD Discharge: 10/01/18 Date of : 37 Report #: [id number]. HEART: May have irregular heart rate, may be a slight murmur, not clear. LYMPHATICS: No enlarged lymph nodes in the supraclavicular, cervical, axillary or inguinal region. ABDOMEN: Slightly obese. No masses, nontender. EXTREMITIES: Have some trace edema. LABORATORY DATA: Here notable for BUN of 20, creatinine of 1.3 on admit. Albumin 3.7, magnesium normal. Coags normal on admit with an aPTT of 32.7. D-dimer was 0.59. White count 7.6, hemoglobin 14.3, MCV 99, platelets 260, differential normal. ASSESSMENT AND PLAN: 1. Small branch pulmonary embolus that may be chronic in nature, which prior was not clinically causing difficulties. I talked with Dr. Coffey and also the patient. Options include that this may be a not new pulmonary embolus as his ultrasound of the leg was normal and this could be chronic in nature and not clinically significant. Agree with Dr. Coffey's tentative plan to use Xarelto 15 b.i.d. for the next 4-6 weeks, then drop back down to the 20. Other options would include switching to Coumadin or Lovenox, both of which would have quite a bit of difficulty with management for the patient. At this point, I think it is not unreasonable to continue the Xarelto as Dr. Coffey is planning. This was discussed with both Dr. Coffey and also the family who understands the rationale. 2. Rapid ventricular response, atrial fibrillation, leg swelling and dyspnea appear to be improved with better rate control and diuresis. Will defer to others. 3. Hyperlipidemia. Continue statin. 4. History of strokes, not recently an issue. We will be available if other questions arise. <ELECTRONICALLY SIGNED> By: Chas Hooks MD 10/06/18 0708 1247 Azul Hooks MD /nt
== END 2018-10-01 14:44 | disposition home or self-care (01) | DRG 175 ==
LOC: M.ERS 11:21 → M.TBA-ER 14:31 → M.2W 14:31
PROVIDERS: Internal Medicine Cardiovascular Disease; Personal Emergency Response Attendant; ADMIT Internal Medicine
DX: I26.99 Other pulmonary embolism without acute cor pulmonale (principal); I50.33 Acute on chronic diastolic (congestive) heart failure; I13.0 Hypertensive heart and chronic kidney disease with heart failure and stage 1 through stage 4 chronic kidney disease, or unspecified chronic kidney disease; N17.9 Acute kidney failure, unspecified; E78.5 Hyperlipidemia, unspecified; I16.0 Hypertensive urgency; I25.10 Atherosclerotic heart disease of native coronary artery without angina pectoris; I48.2 Chronic atrial fibrillation; I25.2 Old myocardial infarction; Z88.2 Allergy status to sulfonamides; Z88.8 Allergy status to other drugs, medicaments and biological substances; Z86.73 Personal history of transient ischemic attack (TIA), and cerebral infarction without residual deficits; Z90.49 Acquired absence of other specified parts of digestive tract; Z82.49 Family history of ischemic heart disease and other diseases of the circulatory system; Z80.42 Family history of malignant neoplasm of prostate; Z79.899 Other long term (current) drug therapy

== ENCOUNTER 2020-04-02 05:33 | Observation (INO) | payer OTHER ==
[~2020-04-02] VITALS: Ht 162.6 cm; Wt 73.9 kg
--- NOTE | ~2020-04-02 | CON ---
[address] [address] CONSULTATION Name: MICHAEL RAY Room: [address] Riccardo#: [id number] Admission: 04/02/20 Attend Phys: Ervin Amaya Discharge: Date of : 39 Report #: [id number] THIS REPORT FOR: //name// cc: Martha Bender Linda J. DO ~ THIS REPORT FOR: //name// CC: Martha Virgen DATE OF SERVICE: 04/02/2020 HISTORY OF PRESENT ILLNESS: This is an 85-year-old male patient who was seen by me for an episode of numbness on the right side. He said it is still there. It came spontaneously without any trauma. He did not have any associated weakness. He did have a CT scan of the head and a carotid Doppler done that does not appear to be showing any hemodynamically significant stenosis. He does have trouble with the neck in the past. REVIEW OF SYSTEMS: Indicate that this patient has some chest pain, has some hypertension, history of TIAs before. He has been seen by Cardiology and I do not think they plan much more workup. A 14-point review of systems was carried out and was otherwise noncontributory. FAMILY HISTORY: Unremarkable. SOCIAL HISTORY: The patient is and in fact his is also admitted. PHYSICAL EXAMINATION: NEUROLOGIC: Indicates he is alert, responsive, able to follow simple and complex commands. Cranial nerve examination 2-12 looks unremarkable. Neuromuscular examination appear unremarkable. No change in cardiac or respiratory status was noticed. VITAL SIGNS: The patient's blood pressure is 123/73, respirations 17, pulse is 95, and temperature is 98.2. EXTREMITIES: He has no edema. Pulses are somewhat difficult to feel. LABORATORY DATA: White count is 5.5. IMAGING STUDIES: As described above. IMPRESSION: Transient ischemic attack versus some radiculopathy symptoms. I think we should work him up for both. I ordered the MRI. We will check this MRI [place] [address] CONSULTATION Name: MICHAEL RAY Room: [address]Kiran#: [id number] Admission: 04/02/20 Attend Phys: Ervin Amaya Discharge: Date of : 39 Report #: [id number] Thank you very much for this referral. By: [id number] Shrestha MD /nt
[~2020-04-02 05:33] MED LIST changes: +LASIX 40 MG TAB40 M2 PO; +LOPRESSOR100 M1 PO; -LOPRESSOR25; -MEN'S MULTI-VI1 EACH PO; +MULTIVITAMIN; +XARELTO15 MG PO
[2020-04-02 05:41] VITALS: BP 127/84
[2020-04-02] MEDS ORDERED: NORVASC 2.5 MG2.5 M1 PO (05:46)
[2020-04-02 05:55] LABS: ABSOLUTE BASOPHILS 0.1 thou/uL (0.0-0.2); ABSOLUTE EOSINOPHILS 0.1 thou/uL (0.0-0.7); ABSOLUTE LYMPHOCYTES 2.4 thou/uL (0.8-5.3); ABSOLUTE MONOCYTES 0.5 thou/uL (0.0-1.2); ABSOLUTE NEUTROPHILS 2.5 thou/uL (1.6-8.1); EOSINOPHILS 1.1 %; HEMATOCRIT 44.1 % (42.0-52.0); HEMOGLOBIN 15.3 gm/dL (14.0-18.0); LYMPHOCYTES 43.9 %; MCH 33.6 pg (26.0-34.0); MCHC 34.7 g/dL (28.0-37.0); MCV 96.9 fL (80.0-100.0); MONOCYTES 9.7 %; MPV 8.4 fl. (7.2-11.1); NUCLEATED RBCS 0 /100WBC; PLATELET COUNT* 193 thou/uL (150-400); POLYS 44.3 %; RBC 4.55 mil/uL (4.50-6.00); RDW-CV 13.4 % (10.5-14.5); WBC 5.5 thou/uL (4.0-11.0)
[2020-04-02 06:05] LABS: INR 1.4
[2020-04-02 06:10] LABS: CALCIUM 8.8 mg/dL (8.5-10.1); CREATININE 1.4 mg/dL (0.6-1.3); POTASSIUM 3.7 mmol/L (3.5-5.1)
[2020-04-02 06:14] LABS: MAGNESIUM 2.2 mg/dL (1.8-2.4); TOTAL BILIRUBIN 1.6 mg/dL (<0.1-1.0); TOTAL PROTEIN 7.5 g/dL (6.4-8.2)
[2020-04-02 07:23] LABS: URINE BILIRUBIN NEGATIVE (Negative); URINE BLOOD 1+ (Negative); URINE CLARITY CLEAR; URINE COLOR YELLOW; URINE GLUCOSE-RANDOM NEGATIVE (Negative); URINE KETONES NEGATIVE (Negative); URINE LEUKOCYTES-REFLEX NEGATIVE (Negative); URINE NITRITE-REFLEX NEGATIVE (Negative); URINE PROTEIN NEGATIVE (Negative); URINE UROBILINOGEN 0.2 E.U./dl (0.2-1.0)
[2020-04-02 07:35] LABS: BACTERIA-REFLEX 1-9 Few /HPF (None Seen); CASTS None Seen /LPF (None Seen); CRYSTALS None Seen /LPF (None Seen); MUCUS 0-3 Light strn/LPF (None Seen); SQUAMOUS 0-3 Few /LPF (0-3); URINE RBC 3-10 Few /HPF (0-2); URINE WBC-REFLEX 0-5 Rare /HPF (0-5)
[2020-04-02 08:59] VITALS: BP 122/79
[2020-04-02 09:00] VITALS: BP 126/89
--- NOTE | 2020-04-02 10:15 | EKG ---
[place] [address] ELECTROCARDIOGRAM REPORT Name: MICHAEL RAY Room: [address]#: [id number] Admission: 04/02/20 Attend Phys: Jeffrey Virgen Discharge: Date of : 39 Date of Service: 04/02/20 0535 Report #: [id number] THIS REPORT FOR: //name// [facility] ED Test Date: 2020-04-02 Test Time: 05:35:21 Pat Name: MICHAEL RAY Department: Room: 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: asiya : 1935 Requested By: Karen Dowell Order Number: [id number] MD: Julio Morrell Measurements Intervals [place] Rate: 84 P: [place]: QRS: -83 QRSD: 81 T: -28 QT: 493 QTc: 583 Interpretive Statements Atrial fibrillation Low voltage, extremity and precordial leads Consider inferior infarct Consider anterior infarct Prolonged QT interval Compared to ECG 09/30/2018 04:48:45 Myocardial infarct finding still present Electronically Signed On 04-02-2020 10:13:14 CDT by Julio Morrell [email or web address] <ELECTRONICALLY SIGNED> By: Julio Morrell MD, [facility] 04/02/20 1013 0535 0535 Julio Morrell MD, [facility] /EPI
--- NOTE | 2020-04-02 11:34 | 2DMMODE ---
[place] [address] 2 D/M-MODE ECHOCARDIOGRAM Name: MICHAEL RAY Room: [address] Riccardo#: [id number] Admission: 04/02/20 Attend Phys: Jeffrey Virgen Discharge: Date of : 39 Date of Service: 04/02/20 1132 Report #: [id number] THIS REPORT FOR: cc: Martha Bender,Martha Lewis,Julio Sheldon MD [facility] ~ APPROVED REPORT Study performed: 04/02/2020 10:29:06 EXAM: Comprehensive 2D, Doppler, and color-flow Echocardiogram Patient Location: In-Patient BSA: 1.79 HR: 73 bpm BP: 122/79 mmHg Other Information Study Quality: Good Indications CVA/TIA Chest Pain Echo Enhancing Agent Indication: Rule out Shunt Agent(s) / Amount(s) Used: Agitated Saline cc 2D Dimensions IVSd: 12.65 (7-11mm) LVOT Diam: 18.46 (18-24mm) LVDd: 45.58 mm PWd: 11.45 (7-11mm) Ascending Ao: 34.97 (22-36mm) LVDs: 37.54 (25-40mm) Aortic Root: 32.53 mm Volumes Left Atrial Volume (Systole) LA ESV Index: 25.40 mL/m2 Aortic Valve AoV Peak Renan.: 0.96 m/s AO Peak Gr.: 3.72 mmHg LVOT Max P.49 mmHg AO Mean Gr.: 2.50 mmHg LVOT Mean P.62 mmHg LVOT Max V: 0.61 m/[place] [address] 2 D/M-MODE ECHOCARDIOGRAM Name: MICHAEL RAY Room: [address] Darian BartlettRKiran#: [id number] Admission: 04/02/20 Attend Phys: Jeffrey Virgen Discharge: Date of : 39 Date of Service: 04/02/20 1132 Report #: [id number] AO V2 VTI: 15.63 cm LVOT Mean V: 0.36 m/s PILAR (VTI): 1.82 cm2 LVOT V1 VTI: 10.65 cm Mitral Valve E/A Ratio: 4.80 MV Decel. Time: 149.18 ms MV E Max Renan.: 0.92 m/s MV PHT: 43.26 ms MVA (PHT): 5.09 cm2 TDI E/Lateral E': 8.36 E/Medial E': 7.67 Medial E' Renan.: 0.12 m/s Lateral E' Renan.: 0.11 m/s Pulmonary Valve PV Peak Renan.: 0.74 m/s PV Peak Gr.: 2.19 mmHg Tricuspid Valve RAP Estimate: 5.00 mmHg TR Peak Gr.: 26.86 mmHg RVSP: 31.86 mmHg PA Pressure: 31.86 mmHg Left Ventricle The left ventricle is normal size. There is global hypokinesis of the left ventricle. Mild concentric left ventricular hypertrophy. Left ventricular systolic function is mildly decreased. LVEF is 40-45%. Grade I - abnormal relaxation pattern. Right Ventricle The right ventricle is normal size. The right ventricular systolic function is normal. Moderator band is seen in the right ventricle. Atria The left atrium size is normal. Lipomatus atrial septal hypertrophy is present. Injection of bubbles documented no right to left shunt. However, a small amount of color was noted in the mid atrial septum suggesting a small left to right shunt consistent with a patent foramen ovale. Right atrium is mildly dilated. Aortic Valve The Aortic valve is sclerotic. Trace aortic regurgitation. There is no aortic valvular stenosis. Mitral Valve There is mitral annular calcification. Trace [place] [address] 2 D/M-MODE ECHOCARDIOGRAM Name: MICHAEL RAY Room: [address] M.RKiran#: [id number] Admission: 04/02/20 Attend Phys: Jeffrey Virgen Discharge: Date of : 39 Date of Service: 04/02/20 1132 Report #: [id number] evidence of mitral valve stenosis. Tricuspid Valve The tricuspid valve is normal in structure. Mild tricuspid regurgitation. Pulmonic Valve The pulmonary valve is normal in structure. There is no pulmonic valvular regurgitation. Great Vessels The aortic root is normal in size. IVC is normal in size and collapses >50% with inspiration. Pericardium There is no pericardial effusion. <Conclusion> Mild concentric left ventricular hypertrophy. LVEF is 40-45%. The Aortic valve is sclerotic. Lipomatus atrial septal hypertrophy is present. Injection of bubbles documented no right to left shunt. However, a small amount of color doppler was noted in the mid atrial septum suggesting a small left to right shunt consistent with a patent foramen ovale. <ELECTRONICALLY SIGNED> By: Julio Morrell MD, FACC 04/02/20 1132 1132 1132 Julio Morrell MD, FACC /INF
[2020-04-02 12:00] VITALS: BP 115/83
--- NOTE | 2020-04-02 12:25 | CON ---
[address] [address] CONSULTATION Name: FLORMICHAEL Reji Room: [address] Darian Gu#: [id number] Admission: 04/02/20 Attend Phys: Ervin Amaya Discharge: Date of : 39 Report #: [id number] THIS REPORT FOR: //name// cc: Martha Bender Linda J. DO THIS REPORT FOR: //name// CC: Martha Rendon DATE OF SERVICE: 04/02/2020 CARDIOLOGY CONSULTATION HISTORY OF PRESENT ILLNESS: The patient is an 85-year-old white male who I was asked to see in the hospital today after he complained of chest pain. The patient has an extensive and complicated past medical history. He states he has had his first stroke was almost 10 years ago while he was living in [place]. He had a second stroke in 2018. He does have permanent atrial fibrillation, but has never been cardioverted. He has been chronically anticoagulated. He states his first heart attack was in [place] about 8 years ago. No stents were placed at that time. He has been admitted here to [facility] on several occasions in the past. He was admitted here in 2018 with a stroke. He was given tPA. He was admitted here in 09/2018 with a pulmonary embolus and he was continued on Xarelto. The patient has been followed by my partner, Dr. Coffey. He does have occasional chest pain. Dr. Coffey saw the patient in the office in January and ordered an outpatient stress test. The patient was doing well until this morning, he awakened with pain under his right nipple. It is a sore discomfort. There is no rash. He denied any trauma. He also noticed some numbness of his right arm. He could move the arm. He denied any shortness of breath, diaphoresis, nausea. He denies any recent exertional dyspnea, edema. Denies any palpitations or syncope. He has had no fever or cough. PAST MEDICAL HISTORY: Otherwise significant for appendectomy, hernia repair, kidney stone removal, hypertension, hyperlipidemia, permanent atrial fibrillation. MEDICATIONS: Include amlodipine, Lipitor, metoprolol, Xarelto. ALLERGIES: HE HAS AN ALLERGY TO SULFA DRUGS. HE ALSO COULD NOT TOLERATE ELIQUIS IN THE PAST. FAMILY HISTORY: His father had a heart attack. SOCIAL HISTORY: He is . He and his live in 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 No smoking or alcohol abuse. REVIEW OF SYSTEMS: He has had no history of asthma, liver disease. He has had a kidney stone removed in the past. He had a skin cancer removed. No psychiatric illness. PHYSICAL EXAMINATION: GENERAL: Revealed an elderly male, lying in bed, appeared in no distress. VITAL SIGNS: Blood pressure 120/80, pulse 70, he was afebrile. HEENT: He was anicteric. Conjunctivae pink. Mucous membranes moist. NECK: Veins nondistended. No carotid bruits. CHEST: Clear to auscultation. CARDIOVASCULAR: Irregular rhythm. ABDOMEN: Soft. EXTREMITIES: Had no edema. Posterior tibial pulses 1+ on the right. Dorsalis pedis pulses 2+ on the left. SKIN: Cool and dry. NEUROLOGIC: Nonfocal. RADIOLOGICAL DATA: His ECG on admission showed atrial fibrillation, low voltage, evidence of previous inferior infarction as well as anterior infarction. His workup, he actually had an echocardiogram in 2018 that showed ejection fraction of 60% with mild aortic regurgitation. Bubble study showed no evidence of a shunt. His workup in the Emergency Room today, he had portable chest x-ray, normal heart size, clear lung petit. CT scan of the head today because of right arm numbness showed cerebral atrophy, small vessel changes, but no acute abnormality. Previous carotid Doppler study in 2018 showed no significant stenosis, plaque formation was noted. LABORATORY WORK: Sodium 140, potassium 3.7, BUN 26, creatinine 1.4, it has been as high as 1.6 in the past. His liver function studies were normal. Troponin all 0.06 or less. BNP 5981. His white blood cell count was 5.5, hemoglobin 15.3. IMPRESSION AND RECOMMENDATIONS: 1. Atypical chest pain. Suspect noncardiac. I believe it is safe to discharge the patient to return for an outpatient nuclear stress test because of his history of vascular disease. 2. Previous stroke. 3. Atrial fibrillation. The patient is on metoprolol for rate control and anticoagulation with Xarelto. 4. Hypertension. Blood pressure appears controlled on a calcium antoine and beta antoine. 5. Previous stroke, suspect secondary to atrial fibrillation. No significant neurologic deficit. 6. Hyperlipidemia. The patient is on [place] [address] CONSULTATION Name: MICHAEL RAY Room: [address] Darian uG#: [id number] Admission: 04/02/20 Attend Phys: Ervin Amaya Discharge: Date of : 39 Report #: [id number] 7. History of kidney stones. 8. Chronic renal insufficiency. <ELECTRONICALLY SIGNED> By: Julio Morrell MD, FACC 04/02/20 1225 1042 1059Dapam Morrell MD, FACMeghna /nt
[2020-04-02 16:00] VITALS: BP 123/73
--- NOTE | 2020-04-02 16:42 | CARDNUC ---
[place] [address] CARDIAC NUCLEAR IMAGING REPORT Name: MICHAEL RAY Room: [address] M.R.#: [id number] Admission: 04/02/20 Attend Phys: Jeffrey Virgen Discharge: Date of : 39 Date of Service: 04/02/20 [facility] Report #: [id number] THIS REPORT FOR: cc: Martha Bender Linda J. DO Liston, Michael J. MD [facility] ~ APPROVED REPORT Imaging Protocol: Rest Tc-99m/Stress Tc-99m 1 day Study performed: 04/02/2020 14:29:34 Indication: Chest pain, Dyspnea, Right Arm numbness, AFib. Patient Location: In-Patient Room #: 204 Stress Tech: Deana Moore Stress Nurse: MARIA L Montero Tech:CHA Coffey Ht: 5 ft 4 in Wt: 163 lbs BSA: 1.79 m2 BMI: 27.97 Medical History Medical History: Angina, Dyspnea, Dizziness, Atrial Fibrillation, CAD s/p GA, Fatigue, HTN, Hyperlipidemia, Stroke/TIA, Weakness, PE, Mild Aortic Regurgitation, Arm numbness. Medications: Amlodipine, Atorvastatin, Metoprolol, Home meds include Xarelto. Allergies: Sulfa ABT. Cardiac Risk Factors: Age, FHX of CAD, HTN, Hyperlipidemia, SOB, AFib, Aortic Regurgitation. Previous Cardiac Procedures: Myocardial infarction. Pretest Chest Pain Characteristics: No chest pain. Exercise History: Sedentary. Physical Disabilities: Generalized weakness/fatigue. Meds Held (24 hrs): Metoprolol. Resting Data Rest SPECT myocardial perfusion imaging was performed in supine position 30 minutes following the intravenous injection of 12.0 mCi of Tc-99m Sestamibi. Time of rest injection: 1235 Date: 04/02/2020 The images were gated to evaluate regional wall motion and calculate left ventricular ejection fraction. Administration Route: [place] [address] CARDIAC NUCLEAR IMAGING REPORT Name: MICHAEL RAY [address] [id number] Admission: 04/02/20 Attend Phys: Jeffrey Virgen Discharge: Date of : 39 Date of Service: 04/02/20 1640 Report #: [id number] Administration Site: Left AC Pharmacologic Stress Pharmacologic stress test was performed by injecting Regadenoson 0.4 mg IV push over 10-15 seconds immediately followed by the intravenous injection of 32.5 mCi of Tc-99m Sestamibi. Time of stress injection: 1430 Date: 04/02/2020 Administration Route: IV Administration Site: Left AC Gated Stress SPECT was performed 40 minutes after stress injection. The images were gated to evaluate regional wall motion and calculate left ventricular ejection fraction. Stress only was performed in the Supine position. Stress Test Details Stress Test: Pharmacologic stress testing performed using 0.4 mg of regadenoson per 5 mL given IV over 10 seconds. Reason for pharmacologic stress test: Generalized weakness/fatigue.. HR Max Heart Rate (APMHR): 137 bpm Resting HR: 88 bpm Target HR (85% APMHR): 116 bpm Max HR Achieved: 121 bpm % of APMHR: 88 Recovery HR: 94 bpm BP Resting BP: 115/84 mmHg Max BP: 130/65 mmHg Recovery BP: 118/74 mmHg ECG Resting ECG: Atrial Fibrillation Stress ECG: Atrial Fibrillation ST Change: None Recovery ECG: Atrial Fibrillation Recovery ST Change: None Recovery Arrhythmia: None Clinical Reason for Termination: Completed protocol Stress Symptoms: Dyspnea, Dizziness. Exercise duration: 00 min 00 sec Exercise capacity: 1.00 METs The patient tolerated Lexiscan infusion without significant [place] [address] CARDIAC NUCLEAR IMAGING REPORT Name: RAYMICHAEL Reji Room: [address] Riccardo#: [id number] Admission: 04/02/20 Attend Phys: Jeffrey Virgen Discharge: Date of : 39 Date of Service: 04/02/20 [facility] Report #: [id number] Nurse Comments An 85 year old male inpatient presented for a sitting Lexiscan r/t chest pain, dyspnea and AFib. Test well tolerated. Recovery unremarkable with PO caffeine. Patient was escorted via wheelchair by staff to Nuclear Medicine for imaging. Patient was stable and stated he felt good at that time. Stress ECG Conclusion The baseline twelve-lead EKG shows atrial fibrillation without significant ST segment abnormality. EKGs obtained during and post Lexiscan infusion show atrial fibrillation with no significant ST segment changes when compared to baseline. Study Quality Study: Good Artifact: No artifact Study Data At rest, the left ventricular ejection fraction was 50%.. Post stress, the left ventricular ejection was 52%.. TID = 1.10. Perfusion Perfusion images obtained at rest and post Lexiscan stress showed uniform uptake of the radioisotope throughout the myocardium without defect. Wall Motion Global LV systolic function is preserved. There is a septal wall motion abnormality noted of uncertain significance. Nuclear Conclusion ECG Findings: negative for ischemia Clinical Findings: negative for ischemia Nuclear Findings: negative for ischemia Exercise Capacity: not assessed Left Ventricular Function: Preserved Risk Study: low Myocardial perfusion images show no defect to suggest infarct or ischemia. Global left ventricular systolic function appears to be preserved. This is a low risk study. <Conclusion> The baseline twelve-lead EKG shows atrial fibrillation without significant ST segment abnormality. EKGs [place] [address] CARDIAC NUCLEAR IMAGING REPORT Name: MICHAEL RAY Room: [address] Darian Gu#: [id number] Admission: 04/02/20 Attend Phys: Jeffrey Virgen Discharge: Date of : 39 Date of Service: 04/02/20 [facility] Report #: [id number] Lexiscan infusion show atrial fibrillation with no significant ST segment changes when compared to baseline. <ELECTRONICALLY SIGNED> By: Henrry Coffey MD, FACMeghna 04/02/20 1640 1640 1640 Henrry Coffey MD, FACMeghna /INF
--- NOTE | 2020-04-02 17:33 | NUR ---
PT IS A/O X 4,VSS,DIGITAL COMPOSER IN PLACE.NO C/O PAIN.NIH OF 0.ECHO, US CAROTID, STRESS TEST COMPLETED.PLANS FOR MRI TOMORROW.PT INFORMED OF PLAN OF CARE AND COMMUNICATES UNDERSTANDING.CALL LIGHT AND FALL PRECAUTIONS IN PLACE.WILL CONTINUE TO MONITOR FOR DURATION OF SHIFT.
[2020-04-02 21:00] VITALS: BP 114/69
[2020-04-03 00:09] VITALS: BP 99/70
[2020-04-03 02:08] LABS: GLYCOHEMOGLOBIN (HGB A1C) 5.5 % (4.8-5.6)
[2020-04-03 04:40] VITALS: BP 102/64
--- NOTE | 2020-04-03 05:39 | NUR ---
PATIENT SLEPT MOST OF THE NIGHT. IV REMAINS SALINE LOCKED. PATIENT HAD NO COMPLAINTS OF CHEST PAIN AND NO MORE SYMPTOMS OF TIA. PATIENT COULD POSSIBLY DC HOME TODAY IF MRI ARE NEGATIVE. WILL CONTINUE TO MONITOR.
[2020-04-03 08:12] LABS: CHOLESTEROL 122 mg/dL (<200); HDL CHOLESTEROL 46 mg/dL (>40); LDL CHOLESTEROL 57 mg/dL (<100); TC:HDL 2.7 Ratio (Not establshd); TRIGLYCERIDE 98 mg/dL (<150); VLDL 20 mg/dL (<40)
[2020-04-03 08:15] LABS: SERUM ASSESSMENT Clear
[2020-04-03 08:35] VITALS: BP 122/84
--- NOTE | 2020-04-03 09:36 | NUR ---
Pt is A&O. Resides at home with . is currently inpt to here in the hospital. No DME. No hx of HH or SNF. Anticipate dc to home today.
--- NOTE | 2020-04-03 09:49 | NUR ---
PT OFF UNIT TO MRI.
--- NOTE | 2020-04-03 11:13 | NUR ---
PT RETURN FROM MRI.
[2020-04-03 12:00] VITALS: BP 113/79
[2020-04-03 13:08] VITALS: BP 122/84
--- NOTE | 2020-04-03 13:27 | NUR ---
DISCONTINUE IV AND TELE. WILL DISCHARGE PT TO HOME VIA PRIVATE VEHICLE.
== END 2020-04-03 15:30 | disposition home or self-care (01) ==
LOC: M.ERS 05:33 → M.TBA-ER 08:14 → M.2W 08:14
PROVIDERS: Emergency Medicine; ADMIT Internal Medicine
DX: R07.89 Other chest pain (principal); I10 Essential (primary) hypertension; E78.5 Hyperlipidemia, unspecified; I48.91 Unspecified atrial fibrillation; Z86.73 Personal history of transient ischemic attack (TIA), and cerebral infarction without residual deficits

== ENCOUNTER 2020-11-27 20:06 | Emergency (ER) | payer OTHER ==
[~2020-11-27] VITALS: Ht 162.6 cm; Wt 68.0 kg
[~2020-11-27 20:06] MED LIST changes: +NORVASC 2.5 MG2.5 M1 PO
[2020-11-27] MEDS ORDERED: [UNRECOGNIZED DRUG - CODE] (20:28)
[2020-11-27 20:47] LABS: HEMATOCRIT 45.9 % (42.0-52.0); HEMOGLOBIN 15.4 gm/dL (14.0-18.0); MCH 32.5 pg (26.0-34.0); MCHC 33.5 g/dL (28.0-37.0); MCV 96.8 fL (80.0-100.0); MPV 7.8 fl. (7.2-11.1); NUCLEATED RBCS 0 /100WBC; PLATELET COUNT* 171 thou/uL (150-400); RBC 4.74 mil/uL (4.50-6.00); WBC 9.3 thou/uL (4.0-11.0)
[2020-11-27 20:54] LABS: CALCIUM 9.5 mg/dL (8.5-10.1); CREATININE 1.6 mg/dL (0.6-1.3); POTASSIUM 4.3 mmol/L (3.5-5.1)
[2020-11-27 20:59] LABS: ALBUMIN 3.9 g/dL (3.4-5.0); TOTAL BILIRUBIN 2.5 mg/dL (<0.1-1.0); TOTAL PROTEIN 7.1 g/dL (6.4-8.2)
[2020-11-27 21:04] LABS: URINE BILIRUBIN NEGATIVE (Negative); URINE BLOOD NEGATIVE (Negative); URINE CLARITY CLEAR; URINE COLOR YELLOW; URINE GLUCOSE-RANDOM NEGATIVE (Negative); URINE KETONES 1+ (Negative); URINE LEUKOCYTES-REFLEX NEGATIVE (Negative); URINE NITRITE-REFLEX NEGATIVE (Negative); URINE PROTEIN NEGATIVE (Negative); URINE UROBILINOGEN 0.2 E.U./dl (0.2-1.0)
[2020-11-27 21:17] LABS: ABSOLUTE LYMPHOCYTES 0.4 thou/uL (0.8-5.3); ABSOLUTE MONOCYTES 0.1 thou/uL (0.0-1.2); ABSOLUTE NEUTROPHILS 8.8 thou/uL (1.6-8.1)
[2020-11-27 21:18] LABS: PLATELET ESTIMATE ADEQUATE
[2020-11-27] MEDS ORDERED: ONDANSETRON ODT4 MG PO (21:28)
[2020-11-27 22:09] VITALS: BP 102/63
--- NOTE | 2020-11-28 13:00 | EKG ---
[place] [address] ELECTROCARDIOGRAM REPORT Name: MICHAEL RAY Room: [facility]#: [id number] Admission: 11/27/20 Attend Phys: Discharge: 11/27/20 Date of : 39 Date of Service: 11/27/202024 Report #: [id number] THIS REPORT FOR: //name// 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: WAI : 1935 Requested By: Josseline Rock Order Number: [id number] MD: Antonio Sumner Measurements Intervals [place] Rate: 111 P: AK: QRS: 260 QRSD: 84 T: QT: 321 QTc: 436 Interpretive Statements Atrial fibrillation Inferior infarct, old Consider anterior infarct Compared to ECG 04/02/2020 05:35:21 Prolonged QT interval no longer present Myocardial infarct finding still present Electronically Signed On 11-28-2020 13:00:24 [employer] C[employer] TECHNOLOGIST by Antonio Sumner [email or web address] <ELECTRONICALLY SIGNED> By: Antonio Sumner MD, FACC 11/28/201299 24 24 Antonio Sumner MD, FAC /EPI
== END 2020-11-27 22:09 | disposition home or self-care (01) ==
LOC: M.ERS 20:06
PROVIDERS: Physician Assistant
DX: R11.2 Nausea with vomiting, unspecified (principal); Z20.828 Contact with and (suspected) exposure to other viral communicable diseases; R10.31 Right lower quadrant pain; E78.5 Hyperlipidemia, unspecified; I10 Essential (primary) hypertension; I48.91 Unspecified atrial fibrillation; I25.2 Old myocardial infarction; Z88.8 Allergy status to other drugs, medicaments and biological substances; Z88.2 Allergy status to sulfonamides; Z79.899 Other long term (current) drug therapy; Z86.73 Personal history of transient ischemic attack (TIA), and cerebral infarction without residual deficits

== ENCOUNTER → 2021-04-24 | Outpatient (CLI) | payer OTHER ==
[~2021-04-24] MED LIST changes: +ONDANSETRON ODT4 MG PO; +[UNRECOGNIZED DRUG - CODE]
[2021-04-24 09:10] LABS: CREATININE 1.3 mg/dL (0.6-1.3)
== END ==
LOC: M.LAB 04-22 08:41
PROVIDERS: ATTEND Surgery
DX: K40.90 Unilateral inguinal hernia, without obstruction or gangrene, not specified as recurrent (principal); N42.89 Other specified disorders of prostate; M25.78 Osteophyte, vertebrae; I70.1 Atherosclerosis of renal artery; I25.10 Atherosclerotic heart disease of native coronary artery without angina pectoris